=== PATIENT | female | born 1930 | race Caucasian/White ===

== ENCOUNTER 2018-02-23 11:25 | Emergency (ER) | payer MEDICARE, OTHER ==
--- NOTE | 2018-02-23 11:36 | ED ---
General Adult HPI - General Stated complaint: poss UTI - History of Present Illness Initial comments: Dictation was produced using [employer] dictation software. please excuse any grammatical, word or spelling errors. Chief Complaint: 88-year-old female brought in for well check. History of Present Illness: 88-year-old female with past medical history of dementia and chronic kidney disease presents for well check. According to EMS patient just got a new guardian. EMS reports that over the past month she has been refusing her medications. Patient denies any medical problems however she does have documented chronic kidney disease dementia and psychiatric disease. Patient is an unreliable historian however she is very pleasant. She denies any complaints. States that her urine is normal. EMS reports that guardian was concerned of urinary tract infection. She was initially tried taking [place] however she refuses workup. - Related Data Home Medications Medication Instructions Recorded Confirmed Allopurinol [Zyloprim] 300 mg PO DAILY 02/23/18 02/23/18 Ammonium Lactate Cream [Lac-Hydrin 1 applic TOPICAL BID 02/23/18 02/23/18 12% Cream] Bumetanide 0.5 mg PO DAILY 02/23/18 02/23/18 Ergocalciferol (Vitamin D2) 50,000 unit PO TH 02/23/18 02/23/18 [Vitamin D2] Escitalopram [Lexapro] 10 mg PO DAILY 02/23/18 02/23/18 Memantine [Namenda] 5 mg PO BID 02/23/18 02/23/18 Nitrofurantoin Macrocrystal 100 mg PO Q12H 02/23/18 02/23/18 [Macrodantin] QUEtiapine [SEROquel] 12.5 mg PO HS 02/23/18 02/23/18 guaiFENesin [guaiFENesin Oral 200 mg PO Q4H PRN 02/23/18 02/23/18 Solution] Allergies Allergy/AdvReac Type Severity Reaction Status Date / Time No Known Allergies Allergy Unverified 02/23/18 11:38 Review of Systems ROS Statement: Those systems with pertinent positive or pertinent negative responses have been documented in the HPI. ROS Other: All systems not noted in ROS Statement are negative. General Exam - General Exam Comments Initial Comments: PHYSICAL EXAM: General Impression: Alert and oriented x3, not in acute distress HEENT: Normocephalic atraumatic, extra-ocular movements intact, pupils equal and reactive to light bilaterally, mucous membranes moist. Cardiovascular: Heart regular rate and rhythm, S1&S2 audible, no murmurs, rubs or gallops Chest: Lungs clear to auscultation bilaterally, no rhonchi, no wheeze, no rales Abdomen: Bowel sounds present, abdomen soft, non-tender, non-distended, no organomegaly Musculoskeletal: Pulses present and equal in all extremities, no peripheral edema Motor: Power 5/5 bilaterally, no focal deficits noted Neurological: CN II-XII grossly intact, no focal motor or sensory deficits noted Skin: Intact with no visualized rashes Psych: Normal affect and mood Course Vital Signs 02/23/18 02/23/18 11:31 14:30 Temperature 98.2 F Pulse Rate 61 57 L Respiratory 16 16 Rate Blood Pressure 155/68 165/79 O2 Sat by Pulse 97 99 Oximetry Medical Decision Making - Medical Decision Making ED course: 88-year-old female presents with altered mental status, well check. Vital signs upon arrival are within acceptable limits. Laboratory evaluation obtained CBC unremarkable. Coag panel is unremarkable. INR is 1.1. Chem panel shows no acute processes. No elevated renal markers. Cardiac enzymes are negative. Urinalysis is consistent with urinary tract infection. Chest x- ray shows no acute processes. CT of the brain was discussed with radiology. They believe that there is a hyperdensity in the left parietal region which is suspicious for petechial hemorrhage. Given these findings we will transfer patient to [facility] with neurosurgery support. Patient given ceftriaxone per she is currently clinically stable. Hemodynamic stable. An not anticoagulated. EKG interpretation: Ventricular rate 55 Jossue sinus bradycardia, OK interval 186, QRS 104, QTc 432. No OK prolongation, no QTC prolongation, no ST or T-wave changes noted. . Overall, this EKG is unremarkable - Lab Data Result diagrams: 02/23/18 12:41 02/23/18 12:41 Lab Results 02/23/18 02/23/18 02/23/18 Range/Units 12:41 12:41 12:41 WBC 5.4 (3.8-10.6) k/uL RBC 4.30 (3.80-5.40) m/uL Hgb 12.8 (11.4-16.0) gm/dL Hct 41.0 (34.0-46.0) % MCV 95.2 (80.0-100.0) fL MCH 29.7 (25.0-35.0) pg MCHC 31.2 (31.0-37.0) g/dL RDW 13.0 (11.5-15.5) % Plt Count 267 (150-450) k/uL Neutrophils % 58 % Lymphocytes % 26 % Monocytes % 9 % Eosinophils % 4 % Basophils % 1 % Neutrophils # 3.1 (1.3-7.7) k/uL Lymphocytes # 1.4 (1.0-4.8) k/uL Monocytes # 0.5 (0-1.0) k/uL Eosinophils # 0.2 (0-0.7) k/uL Basophils # 0.1 (0-0.2) k/uL PT (9.0-12.0) sec INR (<1.2) APTT (22.0-30.0) sec Sodium 140 (137-145) mmol/L Potassium 4.7 (3.5-5.1) mmol/L Chloride 107 (98-107) mmol/L Carbon Dioxide 25 (22-30) mmol/L Anion Gap 8 mmol/L BUN 21 H (7-17) mg/dL Creatinine 1.00 (0.52-1.04) mg/dL Est GFR (CKD-EPI)AfAm 59 (>60 ml/min/1.73 sqM) Est GFR (CKD-EPI)NonAf 51 (>60 ml/min/1.73 sqM) Glucose 102 H (74-99) mg/dL Calcium 9.2 (8.4-10.2) mg/dL Total Bilirubin 0.4 (0.2-1.3) mg/dL AST 28 (14-36) U/L ALT 28 (9-52) U/L Alkaline Phosphatase 47 (38-126) U/L Total Creatine Kinase 142 H (30-135) U/L CK-MB (CK-2) 2.5 H* (0.0-2.4) ng/mL CK-MB (CK-2) Rel Index 1.8 Troponin I <0.012 (0.000-0.034) ng/mL Total Protein 6.9 (6.3-8.2) g/dL Albumin 3.7 (3.5-5.0) g/dL Urine Color Urine Appearance (Clear) Urine pH (5.0-8.0) Ur Specific [place] (1.001-1.035) Urine Protein (Negative) Urine Glucose (UA) (Negative) Urine Ketones (Negative) Urine Blood (Negative) Urine Nitrite (Negative) Urine Bilirubin (Negative) Urine Urobilinogen (<2.0) mg/dL Ur Leukocyte Esterase (Negative) Urine RBC (0-5) /hpf Urine WBC (0-5) /hpf Urine WBC Clumps (None) /hpf Urine Bacteria (None) /hpf Urine Opiates Screen (NotDetected) Ur Oxycodone Screen (NotDetected) Urine Methadone Screen (NotDetected) Ur Propoxyphene Screen (NotDetected) Ur Barbiturates Screen (NotDetected) U Tricyclic Antidepress (NotDetected) Ur Phencyclidine Scrn (NotDetected) Ur Amphetamines Screen (NotDetected) U Methamphetamines Scrn (NotDetected) U Benzodiazepines Scrn (NotDetected) Urine Cocaine Screen (NotDetected) U Marijuana (THC) Screen (NotDetected) 02/23/18 02/23/18 Range/Units 12:41 13:25 WBC (3.8-10.6) k/uL RBC (3.80-5.40) m/uL Hgb (11.4-16.0) gm/dL Hct (34.0-46.0) % MCV (80.0-100.0) fL MCH (25.0-35.0) pg MCHC (31.0-37.0) g/dL RDW (11.5-15.5) % Plt Count (150-450) k/uL Neutrophils % % Lymphocytes % % Monocytes % % Eosinophils % % Basophils % % Neutrophils # (1.3-7.7) k/uL Lymphocytes # (1.0-4.8) k/uL Monocytes # (0-1.0) k/uL Eosinophils # (0-0.7) k/uL Basophils # (0-0.2) k/uL PT 10.7 (9.0-12.0) sec INR 1.1 (<1.2) APTT 24.7 (22.0-30.0) sec Sodium (137-145) mmol/L Potassium (3.5-5.1) mmol/L Chloride (98-107) mmol/L Carbon Dioxide (22-30) mmol/L Anion Gap mmol/L BUN (7-17) mg/dL Creatinine (0.52-1.04) mg/dL Est GFR (CKD-EPI)AfAm (>60 ml/min/1.73 sqM) Est GFR (CKD-EPI)NonAf (>60 ml/min/1.73 sqM) Glucose (74-99) mg/dL Calcium (8.4-10.2) mg/dL Total Bilirubin (0.2-1.3) mg/dL AST (14-36) U/L ALT (9-52) U/L Alkaline Phosphatase (38-126) U/L Total Creatine Kinase (30-135) U/L CK-MB (CK-2) (0.0-2.4) ng/mL CK-MB (CK-2) Rel Index Troponin I (0.000-0.034) ng/mL Total Protein (6.3-8.2) g/dL Albumin (3.5-5.0) g/dL Urine Color Light Yellow Urine Appearance Cloudy H (Clear) Urine pH 6.0 (5.0-8.0) Ur Specific [place] 1.007 (1.001-1.035) Urine Protein Negative (Negative) Urine Glucose (UA) Negative (Negative) Urine Ketones Negative (Negative) Urine Blood Trace H (Negative) Urine Nitrite Positive H (Negative) Urine Bilirubin Negative (Negative) Urine Urobilinogen <2.0 (<2.0) mg/dL Ur Leukocyte Esterase Large H (Negative) Urine RBC 6 H (0-5) /hpf Urine WBC >182 H (0-5) /hpf Urine WBC Clumps Rare H (None) /hpf Urine Bacteria Few H (None) /hpf Urine Opiates Screen Not Detected (NotDetected) Ur Oxycodone Screen Not Detected (NotDetected) Urine Methadone Screen Not Detected (NotDetected) Ur Propoxyphene Screen Not Detected (NotDetected) Ur Barbiturates Screen Not Detected (NotDetected) U Tricyclic Antidepress Not Detected (NotDetected) Ur Phencyclidine Scrn Not Detected (NotDetected) Ur Amphetamines Screen Not Detected (NotDetected) U Methamphetamines Scrn Not Detected (NotDetected) U Benzodiazepines Scrn Not Detected (NotDetected) Urine Cocaine Screen Not Detected (NotDetected) U Marijuana (THC) Screen Not Detected (NotDetected) Disposition Clinical Impression: Brain bleed Disposition: OTHER INSTITUTION NOT DEFINED Condition: Fair Referrals: Jonathan Sparks MD [Primary Care Provider] - 1-2 days Time of Disposition: 15:00 - Out of Hospital Transfer - Req. Specs Out of Hospital Transfer - Requested Specifics: Other Emergency Center
[2018-02-23 11:42] VITALS: RESP 16
[2018-02-23 13:09] LABS: Basophils # (A) 0.1 k/uL (0-0.2); Basophils % (A) 1 %; Eosinophils # (A) 0.2 k/uL (0-0.7); Eosinophils % (A) 4 %; HGB 12.8 gm/dL (11.4-16.0); Lymphocytes # (A) 1.4 k/uL (1.0-4.8); Lymphocytes % (A) 26 %; MCH 29.7 pg (25.0-35.0); MCHC 31.2 g/dL (31.0-37.0); MCV 95.2 fL (80.0-100.0); Mean Platelet Volume 7.2; Monocytes # (A) 0.5 k/uL (0-1.0); Monocytes % (A) 9 %; Neutrophils # (A) 3.1 k/uL (1.3-7.7); Neutrophils % (A) 58 %; Platelet Count 267 k/uL (150-450); WBC 5.4 k/uL (3.8-10.6)
[2018-02-23 13:12] LABS: Albumin 3.7 g/dL (3.5-5.0); Calcium 9.2 mg/dL (8.4-10.2); Potassium 4.7 mmol/L (3.5-5.1); Total Bilirubin 0.4 mg/dL (0.2-1.3); Total Protein 6.9 g/dL (6.3-8.2)
[2018-02-23 13:17] LABS: INR 1.1 (<1.2); Partial Thromboplastin Time 24.7 sec (22.0-30.0); Prothrombin Time 10.7 sec (9.0-12.0)
[2018-02-23] MEDS: SODIUM CHLORIDE 0.9% 1,000 ML IV ONE ×2 (13:18→14:34)
[2018-02-23] MEDS: SODIUM CHLORIDE 0.9% 500 ML IV ONE ×2 (13:18→14:34)
[2018-02-23 13:20] LABS: Creatine Kinase 142 U/L (30-135)
[2018-02-23 13:32] LABS: Troponin I <0.012 ng/mL (0.000-0.034)
[2018-02-23 13:38] LABS: Creatine Kinase MB 2.5 ng/mL (0.0-2.4)
--- NOTE | 2018-02-23 13:42 | CT ---
EXAMINATION TYPE: CT brain wo con DATE OF EXAM: 02/23/2018 COMPARISON: None HISTORY: AMS CT DLP: 1061 mGycm Automated exposure control for dose reduction was used. FINDINGS: Correlate for previous cataract surgery. Calcifications in the basal ganglia noted and there is tiny areas of additional low density which may represent prominent Virchow-Akshat spaces or tiny remote lac unar infarct. Moderate generalized degenerative change with patchy periventricular low attenuation which is nonspec ific. Intracranial atherosclerotic changes are seen with no diagnostic evidence of acute hemorrhage, mass e ffect, or midline shift. IMPRESSION: DEGENERATIVE CHANGE WITH NO DIAGNOSTIC EVIDENCE OF ACUTE HEMORRHAGE. PERIVENTRICULAR LOW ATTENUATION IS NONSPECIFIC BUT MOST TYPICAL REMOTE MICROVASCULAR ISCHEMIA. IF THERE IS CONCERN FOR ACUTE ISCHEMIA CORRELATE WITH MRI CLINICALLY WARRANTED.
[2018-02-23 14:08] LABS: Appearance,Urine Cloudy (Clear); Bacteria,Urine Few /hpf; Bilirubin,Urine Negative (Negative); Blood,Urine Trace (Negative); Color,Urine Light Yellow; Glucose,Urine (UA) Negative (Negative); Ketones,Urine Negative (Negative); Leukocyte Esterase,Urine Large (Negative); Nitrite,Urine Positive (Negative); Protein,Urine Negative (Negative); RBC,Urine 6 /hpf (0-5); Specific Gravity,Urine 1.007 (1.001-1.035); Urobilinogen,Urine <2.0 mg/dL (<2.0); WBC,Urine >182 /hpf (0-5)
[2018-02-23 14:14] LABS: Amphetamine Screen,Urine Not Detected (NotDetected); Barbiturate Screen,Urine Not Detected (NotDetected); Benzodiazepines Screen,Urine Not Detected (NotDetected); Cocaine Screen,Urine Not Detected (NotDetected); Methadone Screen, Urine Not Detected (NotDetected); Opiate Screen,Urine Not Detected (NotDetected); Oxycodone Screen, Urine Not Detected (NotDetected); Phencyclidine Screen,Urine Not Detected (NotDetected); Tricyclic Antidepressant,Urine Not Detected (NotDetected); Urn Cannabinoid Scrn Not Detected (NotDetected)
[2018-02-23] MEDS ORDERED: cefTRIAXone IN SWFI 1,000 MG/10 ML SYRINGE IVP STA (14:28)
[2018-02-23 15:42] VITALS: BP 180/81; PULSE 58; TEMP 98
--- NOTE | 2018-02-23 15:50 | XR ---
EXAMINATION TYPE: XR chest 2V DATE OF EXAM: 02/23/2018 COMPARISON: None HISTORY: 88-year-old female altered mental status, confusion TECHNIQUE: AP and lateral views FINDINGS: Heart upper limits of normal in size. Hyperinflation with increased retrosternal clear space. Mild di ffuse interstitial prominence has a chronic appearance. Aorta within normal limits. Mild pectus excav atum deformity. No consolidation or pleural effusion IMPRESSION: Chronic changes, suspect underlying COPD. No acute process seen.
== END 2018-02-23 16:12 | disposition other institution (70) ==
LOC: EC 11:25 → EEVIPCON 11:25 → EC 16:12
DX: I61.9 Nontraumatic intracerebral hemorrhage, unspecified (principal); N39.0 Urinary tract infection, site not specified; F99 Mental disorder, not otherwise specified; F03.90 Unspecified dementia, unspecified severity, without behavioral disturbance, psychotic disturbance, mood disturbance, and anxiety; Z79.899 Other long term (current) drug therapy
CPT/HCPCS: 36415; 93005; 80053; 82550; 82553; 84484; 85025; 85610; 85730; 81001; 80306; 87086; 71046; 70450; 99285; 96374; J0696

== ENCOUNTER 2018-03-16 16:02 | Emergency (ER) | payer MEDICARE, OTHER ==
--- NOTE | 2018-03-16 16:22 | ED ---
General Adult HPI - General Stated complaint: Mental health Time Seen by Provider: 03/16/18 16:02 Source: RN notes reviewed - History of Present Illness Initial comments: This is an 88-year-old female presents emergency Department because she's been court ordered to be evaluated. Patient states she has not been taking her medications for months because she thinks they harm her. Patient also states she thinks it might have cocaine in them. Patient states she doesn't want to be here and she doesn't know why she was made to come today. Patient denies any physical complaints today. Patient denies headache patient denies numbness weakness. Patient denies any lightheadedness or dizziness. Patient denies chest pain difficulty breathing or shortness of breath. Patient denies any abdominal pain patient denies nausea vomiting diarrhea. Patient denies any suicidal homicidal ideations. Patient states she has been told that she is bipolar and another doctor told her she might of schizophrenia. He denies any drug use or smoking. Patient denies any drinking. - Related Data Home Medications Medication Instructions Recorded Confirmed Allopurinol [Zyloprim] 300 mg PO DAILY 02/23/18 03/16/18 Ammonium Lactate Cream [Lac-Hydrin 1 applic TOPICAL BID 02/23/18 03/16/18 12% Cream] Bumetanide 0.5 mg PO DAILY 02/23/18 03/16/18 Ergocalciferol (Vitamin D2) 50,000 unit PO TH 02/23/18 03/16/18 [Vitamin D2] Escitalopram [Lexapro] 10 mg PO DAILY 02/23/18 03/16/18 Memantine [Namenda] 5 mg PO BID 02/23/18 03/16/18 QUEtiapine [SEROquel] 12.5 mg PO HS 02/23/18 03/16/18 guaiFENesin [guaiFENesin Oral 200 mg PO Q4H PRN 02/23/18 03/16/18 Solution] Allergies Allergy/AdvReac Type Severity Reaction Status Date / Time No Known Allergies Allergy Verified 03/16/18 17:15 Review of Systems ROS Statement: Those systems with pertinent positive or pertinent negative responses have been documented in the HPI. ROS Other: All systems not noted in ROS Statement are negative. Past Medical History Past Medical History: Dementia, Hypertension, Renal Disease Additional Past Medical History / Comment(s): stage 3 kidney disease and gout per [facility] History of Any Multi-Drug Resistant Organisms: None Reported Past Surgical History: No Surgical Hx Reported Past Psychological History: Schizophrenia Smoking Status: Never smoker Past Alcohol Use History: None Reported Past Drug Use History: None Reported General Exam - General Exam Comments Initial Comments: GENERAL: Patient is well-developed and well-nourished. Patient is nontoxic and well- hydrated and is in no acute distress. ENT: Neck is soft and supple. No significant lymphadenopathy is noted. Oropharynx is clear. Moist mucous membranes. EYES: The sclera were anicteric and conjunctiva were pink and moist. Extraocular movements were intact and pupils were equal round and reactive to light. Eyelids were unremarkable. PULMONARY: Unlabored respirations. Good breath sounds bilaterally. No audible rales rhonchi or wheezing was noted. CARDIOVASCULAR: There is a regular rate and rhythm without any murmurs gallops or rubs. ABDOMEN: Soft and nontender with normal bowel sounds. SKIN: Skin is clear with no lesions or rashes and otherwise unremarkable. NEUROLOGIC: Patient is alert and oriented x3. Cranial nerves II through XII are grossly intact. Motor and sensory are also intact. Normal speech, volume and content. Symmetrical smile. MUSCULOSKELETAL: Normal extremities with adequate strength and full range of motion. 1+ swelling bilaterally LYMPHATICS: No significant lymphadenopathy is noted PSYCHIATRIC: Patient denies suicidal or homicidal ideations. Patient admits to not taking any of her medications. Course Vital Signs 03/16/18 16:13 Temperature 98.7 F Pulse Rate 69 Respiratory 18 Rate Blood Pressure 169/76 O2 Sat by Pulse 99 Oximetry Disposition Clinical Impression: History of schizophrenia Disposition: HOME SELF-CARE Condition: Good Instructions: Schizophrenia (ED) Is patient prescribed a controlled substance at d/c from ED?: No Referrals: Madan Astudillo MD [Primary Care Provider] - 1-2 days Time of Disposition: 19:26
[2018-03-16 20:01] VITALS: BP 184/84; PULSE 66; RESP 16; TEMP 97.8
== END 2018-03-16 21:23 | disposition home or self-care (01) ==
LOC: EC 16:02
DX: Z04.6 Encounter for general psychiatric examination, requested by authority (principal); F31.9 Bipolar disorder, unspecified; F03.90 Unspecified dementia, unspecified severity, without behavioral disturbance, psychotic disturbance, mood disturbance, and anxiety; I10 Essential (primary) hypertension; Z86.59 Personal history of other mental and behavioral disorders; Z79.899 Other long term (current) drug therapy
CPT/HCPCS: 99283